=== PATIENT | male | born 1995 | race African-American/Black ===

== ENCOUNTER 2016-12-11 00:58 | Emergency (ER) | payer OTHER ==
[~2016-12-11 00:58] MED LIST: FLEXERIL10 M1 PO; NAPROXEN PO
== END 2016-12-11 03:04 | disposition home or self-care (01) ==
LOC: CED 00:58
DX: R11.2 Nausea with vomiting, unspecified (principal); Z88.0 Allergy status to penicillin; Z88.6 Allergy status to analgesic agent
CPT/HCPCS: 99283